=== PATIENT | female | born 1985 | race African-American/Black ===

== ENCOUNTER 2025-01-17 10:19 | Emergency (ER) | payer SELFPAY ==
[2025-01-17] MEDS ORDERED: Ketorolac Tromethamine 30 MG (1 mL) VIAL ONE (11:38)
== END 2025-01-17 11:50 | disposition home or self-care (01) ==
LOC: ERS 10:19
DX: S63.501A Unspecified sprain of right wrist, initial encounter (principal); S59.901A Unspecified injury of right elbow, initial encounter; W10.9XXA Fall (on) (from) unspecified stairs and steps, initial encounter
CPT/HCPCS: 96372; 99283; J1885

== ENCOUNTER 2025-01-23 16:26 | Emergency (ER) | payer MEDICAID, SELFPAY ==
[2025-01-23] MEDS ORDERED: Acetaminophen 500 MG TAB ONE (19:12)
== END 2025-01-23 19:50 | disposition home or self-care (01) ==
LOC: ERS 16:26
DX: B02.9 Zoster without complications (principal); L30.9 Dermatitis, unspecified; E11.9 Type 2 diabetes mellitus without complications; Z79.84 Long term (current) use of oral hypoglycemic drugs; Z79.4 Long term (current) use of insulin; Z79.899 Other long term (current) drug therapy
CPT/HCPCS: 99282